=== PATIENT | male | born 1940 | race Caucasian/White ===

== ENCOUNTER 2018-11-26 13:50 | Emergency (ER) | payer MEDICARE, BC ==
[~2018-11-26] VITALS: Ht 165.1 cm; Wt 96.8 kg
[2018-11-26 14:25] VITALS: BP 145/95
== END 2018-11-26 14:26 | disposition home or self-care (01) ==
LOC: ER 13:52
DX: M54.2 Cervicalgia (principal); M79.10 Myalgia, unspecified site; R51 Headache; E78.00 Pure hypercholesterolemia, unspecified; I10 Essential (primary) hypertension; Z98.890 Other specified postprocedural states; Z88.5 Allergy status to narcotic agent
CPT/HCPCS: 99281

== ENCOUNTER 2019-02-08 09:34 | Day surgery (SDC) | payer MEDICARE, BC ==
[2019-02-06 15:57] LABS: BASOPHILS % (AUTO) 0.7 % (0-1); EOSINOPHILS # (AUTO) 0.1 X10'3 (0-0.9); LYMPHOCYTES # (AUTO) 1.5 X10'3 (1.1-4.8); LYMPHOCYTES % (AUTO) 20.8 % (21-51); MEAN CORPUSCULAR HEMOGLOBIN 32.2 PG (27.0-31.0); MEAN CORPUSCULAR HGB CONC 34.4 g/dL (33.0-36.5); MEAN CORPUSCULAR VOLUME 93.6 FL (78-98); MEAN PLATELET VOLUME 11.4 FL (7.4-10.4); MONOCYTES # (AUTO) 0.8 X10'3 (0-0.9); MONOCYTES % (AUTO) 11.9 % (2-12); NEUTROPHILS # (AUTO) 4.6 X10'3 (1.8-7.7); NEUTROPHILS % (AUTO) 64.6 % (42-75); PRE OP HEMATOCRIT 49.6 % (42.0-52.0); PRE OP HEMOGLOBIN 17.1 g/dL (14.0-17.9); PRE OP PLATELET COUNT 145 X10'3 (140-440); RED BLOOD COUNT 5.29 X10'6 (4.70-6.10); RED CELL DISTRIBUTION WIDTH 13.8 % (11.5-14.5)
[2019-02-06 16:12] LABS: ALBUMIN 3.8 G/DL (3.4-5.0); ALBUMIN/GLOBULIN RATIO 1.2 (1.1-1.5); ALKALINE PHOSPHATASE 106 IU/L (46-116); BLOOD UREA NITROGEN 21 MG/DL (7-18); BUN/CREATININE RATIO 16.3 (5.4-32.0); CALCIUM 9.2 MG/DL (8.5-10.1); CHLORIDE 104 MMOL/L (99-107); CREATININE 1.29 MG/DL (0.60-1.10); PRE OP ALT 30 U/L (30-65); PRE OP ANION GAP 7 (8-16); PRE OP AST 16 U/L (10-37); PRE OP BILIRUB, TOTAL 0.6 MG/DL (0.0-1.0); PRE OP GLUCOSE 109 MG/DL (70-104); PRE OP POTASSIUM 4.2 MMOL/L (3.4-5.1); PRE OP SODIUM 139 MMOL/L (135-145); TOTAL CARBON DIOXIDE 28.1 MMOL/L (24-32); eGFR 54 ML/MIN
[2019-02-06 16:20] LABS: LARGE PLATELETS FEW; PLATELET ESTIMATE NORMAL
[2019-02-06 16:36] LABS: CLARITY,URINE CLEAR (Clear); COLOR,URINE YELLOW (Yellow); GLUCOSE, URINE NEGATIVE (Neg); KETONES,URINE NEGATIVE (Neg); LEUKOCYTE ESTERASE ,URINE NEGATIVE (Neg); NITRITES, URINE NEGATIVE (Neg); OCCULT BLOOD,URINE NEGATIVE (Neg); PH,URINE 5.5 (4.8-8.0); PROTEIN,URINE NEGATIVE (Neg); UROBILINOGEN,URINE 0.2 E.U/dL (0.2-1.0)
[2019-02-06 16:43] LABS: UA COLLECTION TYPE NON-SPECIFIED
[~2019-02-08] VITALS: Ht 167.6 cm; Wt 94.6 kg
[2019-02-08] VITALS (12 sets, daily range): BP systolic 136–177; BP diastolic 74–99
[~2019-02-08 09:34] MED LIST: ALPR-624 PO; BISO1TAB8 PO; CALC-854 PO; CHOL100046 PO; CYAN-51 PO; DOCUMENT DATE & TIME OF BETA-BLOCKER PO ONE; GLUC1CAP8 PO; OMEG1CAP2 PO; OMEP20TA5 PO; SIMV-45 PO; TEST75GE TOP; VITA400C19 PO; [UNRECOGNIZED DRUG - CODE] PO; ceFOXitin 2 GM ADDvantage bag 100 ML IV ONE; ceFOXitin 2 GM ADDvantage bag 50 ML IV ONE; famotidine 10mg tablet PO ONE; famotidine 20mg tablet PO ONE; ringers solution, lacted 1,000 ML IV SCH
[2019-02-08] MEDS ORDERED: FLU VACC QS2019-20 36MOS UP/PF 60 MCG/0.5 ML SYRINGE IMVAC ONE (10:50)
[2019-02-08] MEDS ORDERED: ceFAZolin 1000mg inj ONE ×2 (12:21→13:20)
[2019-02-08] MEDS ORDERED: BUPIVAcaine/PF 2.5 mg/ml (0.25%) 30ml vial ONE (13:21)
[2019-02-08] MEDS ORDERED: sevoflurane 250ml liquid IH ONE (15:24)
[2019-02-08] MEDS ORDERED: fentaNYL /PF 50mcg/ml 5ml ampule ONE (15:28)
[2019-02-08] MEDS ORDERED: midazolam 2 mg/2 ml injection ONE (15:28)
[2019-02-08] MEDS ORDERED: propofol inj 20 ML IV ONE (15:29)
[2019-02-08] MEDS ORDERED: rocuronium 10mg/ml inj IV ONE (15:32)
[2019-02-08] MEDS ORDERED: sugammadex 200mg/2ml injection IV ONE (15:58)
[2019-02-08] MEDS ORDERED: ePHEDrine 50MG/ML INJ. ONE (15:58)
--- NOTE | 2019-02-08 16:18 | NUR ---
Received from OR via [facility], accompanied by Anesthesiologist DR SCHMIDT and report given by Anesthesiologist. PT DROWSY, DENIES PAIN, ABDOMEN W/4 LAP SITES W/BANDAIDS CDI. Addendum: 02/08/19 at 1649 by Keena Calderon RN Amended: Links added.
[2019-02-08] MEDS ORDERED: ringers solution, lacted 1,000 ML IV SCH (16:42)
[2019-02-08] MEDS ORDERED: ondansetron/PF 4mg/2ml inj IV PRN (16:45)
[2019-02-08] MEDS ORDERED: HYDROmorphone inj. 0.5 MG/0.5 ML DISP.SYRIN IV PRN ×2 (16:45)
[2019-02-08] MEDS ORDERED: hydrALAZINE 20mg/ml inj. IV PRN (16:45)
[2019-02-08] MEDS ORDERED: labetalol 20mg/4ml (5mg/ml) syringe IV PRN (16:45)
[2019-02-08] MEDS ORDERED: meperidine/PF 25mg/ml syringe IV PRN ×3 (16:45)
[2019-02-08] MEDS ORDERED: traMADol 50MG tablet PO ONE (17:30)
--- NOTE | 2019-02-08 18:08 | NUR ---
D/C INSTRUCTIONS GIVEN AND GONE OVER W/PT AND PTS WHOM VERBALIZE UNDERSTANDING, PT D/CD TO HOME VIA W/C TO PRIVATE VEHICLE W/O INCIDENT. Addendum: 02/08/19 at 1915 by Keena Calderon RN Amended: Links added.
== END 2019-02-08 18:08 | disposition home or self-care (01) ==
LOC: PAS 09:34
PROVIDERS: ATTEND Surgery
DX: K80.10 Calculus of gallbladder with chronic cholecystitis without obstruction (principal); I10 Essential (primary) hypertension; K21.9 Gastro-esophageal reflux disease without esophagitis; F41.9 Anxiety disorder, unspecified; Z79.899 Other long term (current) drug therapy; Z86.73 Personal history of transient ischemic attack (TIA), and cerebral infarction without residual deficits; Z88.5 Allergy status to narcotic agent; Z85.49 Personal history of malignant neoplasm of other male genital organs; Z98.890 Other specified postprocedural states; Z90.79 Acquired absence of other genital organ(s); Z23 Encounter for immunization
CPT/HCPCS: 36415; 47562; 80053; 81003; 82948; 85025; 93005; C9399; G0008; J0690; J0694; J2250; J2704; J3010; J3490; J7120; Q2037; 88304; A4215; A4618; A7000

== ENCOUNTER 2020-05-07 05:55 | Inpatient (IN) | payer MEDICARE, BC ==
[2020-04-30 16:26] LABS: BASOPHILS % (AUTO) 0.8 % (0-1); EOSINOPHILS # (AUTO) 0.2 X10'3 (0-0.9); EOSINOPHILS % (AUTO) 4.6 % (0-6); LYMPHOCYTES % (AUTO) 17.8 % (21-51); MEAN CORPUSCULAR HEMOGLOBIN 31.3 PG (27.0-31.0); MEAN CORPUSCULAR HGB CONC 33.8 g/dL (33.0-36.5); MEAN CORPUSCULAR VOLUME 92.7 FL (78-98); MEAN PLATELET VOLUME 10.5 FL (7.4-10.4); MONOCYTES # (AUTO) 0.7 X10'3 (0-0.9); MONOCYTES % (AUTO) 13.9 % (2-12); NEUTROPHILS # (AUTO) 3.4 X10'3 (1.8-7.7); NEUTROPHILS % (AUTO) 62.9 % (42-75); PRE OP HEMATOCRIT 42.5 % (42.0-52.0); PRE OP HEMOGLOBIN 14.3 g/dL (14.0-17.9); PRE OP PLATELET COUNT 157 X10'3 (140-440); RED BLOOD COUNT 4.58 X10'6 (4.70-6.10); RED CELL DISTRIBUTION WIDTH 14.3 % (11.5-14.5)
[2020-04-30 16:46] LABS: ALBUMIN 3.8 G/DL (3.4-5.0); ALBUMIN/GLOBULIN RATIO 1.1 (1.1-1.5); ALKALINE PHOSPHATASE 146 IU/L (46-116); BLOOD UREA NITROGEN 18 MG/DL (7-18); BUN/CREATININE RATIO 13.8 (5.4-32.0); CALCIUM 9.4 MG/DL (8.5-10.1); CHLORIDE 106 MMOL/L (99-107); PRE OP ALT 34 U/L (30-65); PRE OP ANION GAP 7 (8-16); PRE OP AST 20 U/L (10-37); PRE OP BILIRUB, TOTAL 0.5 MG/DL (0.0-1.0); PRE OP GLUCOSE 123 MG/DL (70-104); PRE OP POTASSIUM 4.5 MMOL/L (3.4-5.1); PRE OP SODIUM 143 MMOL/L (135-145); TOTAL CARBON DIOXIDE 30.2 MMOL/L (24-32); TOTAL PROTEIN 7.4 G/DL (6.4-8.2); eGFR 53 ML/MIN
[~2020-05-07] VITALS: Ht 167.6 cm; Wt 97.3 kg
[2020-05-07] VITALS (18 sets, daily range): BP systolic 119–152; BP diastolic 59–84
[~2020-05-07 05:55] MED LIST changes: -ALPR-624 PO; +LACT1CAP65 PO; -SIMV-45 PO; -TEST75GE TOP; +VITA-336 PO; -VITA400C19 PO; +acetaminophen 325mg tablet PO ONE; +ceFAZolin 2gm in dextrose, iso 50 ML IV ONE; -ceFOXitin 2 GM ADDvantage bag 100 ML IV ONE; -ceFOXitin 2 GM ADDvantage bag 50 ML IV ONE; +celeCOXIB 100mg capsule PO ONE; -famotidine 10mg tablet PO ONE; +gabapentin 300mg capsule PO ONE; +metoclopramide 5 mg/ml inj IV ONE; +oxyCODONE SR 10mg (sust. release) tab -2 tabs (20mg) PO ONE; +vancomycin 1,500 MG in NS 300ml IV soln IV ONE
[2020-05-07] MEDS ORDERED: TRANEXAMIC ACID 1 GM IN NACL,ISO-OS 100 ML IV ONE (06:00)
[2020-05-07] MEDS ORDERED: oxyCODONE IR 5mg (immed. release) tablet PO PRN (06:15)
[2020-05-07] MEDS ORDERED: HYDROmorphone 1 mg/ml syringe IV PRN (06:15)
[2020-05-07] MEDS ORDERED: loratadine/pseudoephedrine TAB.SR.12Hour PO PRN (06:15)
[2020-05-07] MEDS ORDERED: pantoprazole 40mg Tablet.DR PO PRN (06:15)
[2020-05-07] MEDS ORDERED: diphenhydrAMINE 25mg capsule PO PRN ×2 (06:15)
[2020-05-07] MEDS ORDERED: acetaminophen 325mg tablet PO PRN (06:15)
[2020-05-07] MEDS ORDERED: potassium cl 20mEq in 1/2 NS 1,000 ML IV SCH (06:15)
[2020-05-07] MEDS ORDERED: bisacodyl 10mg suppository rectal RC PRN (06:15)
[2020-05-07] MEDS ORDERED: magnesium hydroxide 30ml (MOM) UD suspension PO PRN (06:15)
[2020-05-07] MEDS ORDERED: HYDROmorphone inj. 0.5 MG/0.5 ML DISP.SYRIN IV PRN (06:15)
[2020-05-07] MEDS ORDERED: ondansetron/PF 4mg/2ml inj IV PRN ×3 (06:15→13:35)
[2020-05-07] MEDS ORDERED: LIDOcaine 1% (10mg/ml) 2ml vial ONE (06:27)
[2020-05-07] MEDS ORDERED: vancomycin 1,000mg inj ONE (06:40)
[2020-05-07] MEDS ORDERED: ROPIVAcaine inj 250 MG, CloNIDine/PF inj 80 MCG, epiNEPHrine inj 0.5 MG in normal salin... IV ONE (07:00)
[2020-05-07] MEDS ORDERED: acetaminophen 325mg tablet PO SCH (08:00)
[2020-05-07] MEDS ORDERED: multivitamins, therapeutics tablet PO SCH (08:00)
[2020-05-07] MEDS ORDERED: gabapentin 300mg capsule PO SCH (08:00)
[2020-05-07] MEDS ORDERED: ascorbic acid 500mg tablet PO SCH (08:00)
[2020-05-07] MEDS ORDERED: fentaNYL/PF 50MCG/1 ML 2ML syringe IV PRN ×2 (08:10)
[2020-05-07] MEDS ORDERED: ringers solution, lacted 1,000 ML IV SCH (08:10)
[2020-05-07] MEDS ORDERED: morphine 2 MG/ML inj. syringe IV PRN (08:10)
[2020-05-07] MEDS ORDERED: ROPIVAcaine 0.2% (10 MG/5 ML) BOLUS INJECTION ADDCANAL PRN (08:10)
[2020-05-07] MEDS ORDERED: morphine 4 MG/ML inj SYRINge IV PRN (08:10)
[2020-05-07] MEDS ORDERED: labetalol 20mg/4ml (5mg/ml) syringe IV PRN (08:10)
[2020-05-07] MEDS ORDERED: hydrALAZINE 20mg/ml inj. IV PRN (08:10)
[2020-05-07] MEDS ORDERED: fentaNYL/PF 50MCG/1 ML 2ML syringe ONE (08:13)
[2020-05-07] MEDS ORDERED: MIDAZolam 1mg/ml 10ml vial ONE (08:13)
[2020-05-07] MEDS ORDERED: aspirin 325mg tablet PO SCH (08:30)
[2020-05-07] MEDS ORDERED: sevoflurane 250ml liquid IH ONE (08:33)
[2020-05-07] MEDS ORDERED: ROPIVAcaine 0.5% (5mg/ml) 30ml vial ONE (09:00)
[2020-05-07] MEDS ORDERED: dexamethasone sod phosphate 4mg/ml inj. ONE (09:00)
--- NOTE | 2020-05-07 10:40 | NUR ---
Received from OR via BED, accompanied by Anesthesiologist DR CHRISTIANSON and report given by Anesthesiolgist. PATIENT A&OX4, DENIES PAIN, V/S WNL, NEUROVASCULAR CHECKS INTACT, SCD ON, 20G PIV LUE, DANELLE DRESSING LEFT KNEE WRAP POWDER PACK CDI W/ ONQ BALL AT 4ML/HR. SENSATIONS AT T11
[2020-05-07] MEDS: ROPIVAcaine 0.2%/PF PUMP/bolus 550 ML ADDCANAL SCH (10:46)
--- NOTE | 2020-05-07 11:40 | NUR ---
PATIENT A&OX4, DENIES PAIN, V/S WNL, NEUROVASCULAR CHECKS INTACT, SCD ON, 18G PIV LUE, DANELLE DRESSING LEFT KNEE WRAP POWDER PACK CDI W/ ONQ BALL AT 4ML/HR. SENSATIONS AT T11. PATIENT TAKEN TO 4012A WITH ALL BELONGINGS AND HOOKED UP TO MONITORS IN ROOM AND REPORT GIVEN TO PIPE STRAIGHTENER WHO HAS TAKEN OVER PATIENT CARE.
--- NOTE | 2020-05-07 11:59 | NUR ---
RECIEVED REPORT FROM ROSA M IN RECOVERY. PT ARRIVED TO FLOOR IN STABLE CONDITION AT 11:45. WILL CONTINUE TO MONITOR.
[2020-05-07] MEDS: acetaminophen 325mg tablet PO SCH ×2 (15:24→22:11)
[2020-05-07] MEDS ORDERED: ceFAZolin 2gm in dextrose, iso 100 ML IV SCH (16:00)
[2020-05-07] MEDS ORDERED: tranexamic acid 1gm/0.7% sal. 100 ML IV ONE (16:00)
--- NOTE | 2020-05-07 16:04 | NUR ---
Transexamic acid barcode would not scan, hung medication at 1524. Medications rights reviewed with patient and emar.
[2020-05-07] MEDS ORDERED: ceFAZolin 2gm in dextrose, iso 50 ML IV SCH (16:18)
[2020-05-07] MEDS: potassium cl 20mEq in 1/2 NS 1,000 ML IV SCH ×2 (16:37→21:35)
[2020-05-07] MEDS: ceFAZolin 2gm in dextrose, iso 50 ML IV SCH (16:42)
--- NOTE | 2020-05-07 18:18 | NUR ---
Orientee documentation: I have reviewed and agree with all interventions, assessments performed and documented by FATOUMATA Ryan.
--- NOTE | 2020-05-07 18:27 | NUR ---
Problems reprioritized. Patient report given, questions answered & plan of care reviewed with Ayala RN and student .
[2020-05-07] MEDS ORDERED: VANCOMYCIN 1,500MG inj. 1,500 MG in normal saline 500ml IV soln 500 ML IV SCH (20:00)
[2020-05-07] MEDS ORDERED: BISOPROLOL FUMARATE PO SCH (21:00)
[2020-05-07] MEDS ORDERED: HCTZ PO SCH (21:00)
[2020-05-07] MEDS: ascorbic acid 500mg tablet PO SCH (22:08)
[2020-05-07] MEDS: gabapentin 300mg capsule PO SCH (22:09)
[2020-05-07] MEDS: celeCOXIB 100mg capsule PO SCH (22:09)
[2020-05-07] MEDS: sennosides 8.6mg tablet PO SCH (22:11)
[2020-05-07] MEDS ORDERED: VANCOMYCIN 1,500MG inj. 1,500 MG in normal saline 500ml IV soln 300 ML IV ONE (22:50)
[2020-05-08] MEDS: ceFAZolin 2gm in dextrose, iso 50 ML IV SCH (00:56)
[2020-05-08 02:00] VITALS: BP 135/70
[2020-05-08] MEDS: acetaminophen 325mg tablet PO SCH ×4 (02:31→21:02)
[2020-05-08] MEDS: potassium cl 20mEq in 1/2 NS 1,000 ML IV SCH ×3 (05:35→21:35)
[2020-05-08 06:00] VITALS: BP 134/70
[2020-05-08] MEDS ORDERED: atenolol 50mg tablet PO SCH ×2 (08:00→08:57)
[2020-05-08] MEDS: HYDROchlorothiazide 25mg tablet PO SCH (08:17)
[2020-05-08] MEDS: celeCOXIB 100mg capsule PO SCH ×2 (08:19→21:03)
[2020-05-08] MEDS: multivitamins, therapeutics tablet PO SCH (08:19)
[2020-05-08] MEDS: aspirin 325mg tablet PO SCH (08:19)
[2020-05-08] MEDS: ascorbic acid 500mg tablet PO SCH ×2 (08:20→21:03)
[2020-05-08] MEDS: gabapentin 300mg capsule PO SCH ×3 (08:20→21:01)
[2020-05-08 08:35] LABS: BASOPHILS % (AUTO) 0.2 % (0-1); EOSINOPHILS % (AUTO) 0.4 % (0-6); HEMATOCRIT 36.5 % (42.0-52.0); HEMOGLOBIN 12.4 g/dl (14.0-17.9); LYMPHOCYTES # (AUTO) 0.7 X10'3 (1.1-4.8); LYMPHOCYTES % (AUTO) 7.2 % (21-51); MEAN CORPUSCULAR HEMOGLOBIN 31.4 PG (27.0-31.0); MEAN CORPUSCULAR HGB CONC 33.9 g/dL (33.0-36.5); MEAN CORPUSCULAR VOLUME 92.4 FL (78-98); MEAN PLATELET VOLUME 10.8 FL (7.4-10.4); MONOCYTES # (AUTO) 1.1 X10'3 (0-0.9); MONOCYTES % (AUTO) 10.4 % (2-12); NEUTROPHILS # (AUTO) 8.4 X10'3 (1.8-7.7); NEUTROPHILS % (AUTO) 81.8 % (42-75); PLATELET COUNT 137 X10'3 (140-440); RED BLOOD COUNT 3.95 X10'6 (4.70-6.10); WHITE BLOOD COUNT 10.3 X10'3 (4.5-11.0)
[2020-05-08 09:14] LABS: ANION GAP 5 (8-16); CHLORIDE 107 MMOL/L (99-107); POTASSIUM 4.6 MMOL/L (3.5-5.1); SODIUM 141 MMOL/L (135-145); TOTAL CARBON DIOXIDE 28.8 MMOL/L (24-32)
--- NOTE | 2020-05-08 09:16 | NUR ---
Joint Replacement Consult: Pt seen by VALERIY s/p L TKA for written/verbal high protein ed w/ RD contact information provided. Pt is agreeable to strawberry-banana and peach alternating Mark kenia BETANCOURT; notified. To provide initial assessment on above date. Addendum: 05/08/20 at [address] Amended: Links added.
[2020-05-08 09:34] LABS: LARGE PLATELETS FEW; PLATELET ESTIMATE NORMAL
[2020-05-08] MEDS ORDERED: atenolol 25mg tablet PO SCH (09:38)
[2020-05-08] MEDS ORDERED: ASPI-1 PO (09:50)
[2020-05-08] MEDS: oxyCODONE IR 5mg (immed. release) tablet PO PRN ×2 (13:22→19:37)
[2020-05-08] MEDS: JUVEN Smoothie Arginine/Glut./Ca2+Bmb (Juven 19.3pkt) 240ml cup PO SCH ×2 (13:25→18:00)
[2020-05-08 18:00] VITALS: BP 139/70
--- NOTE | 2020-05-08 18:25 | NUR ---
Patient in room [facility] 4012. I have received report from FATOUMATA Gauthier and had the opportunity to ask questions and assume patient care.
[2020-05-08] MEDS ORDERED: celeCOXIB 100mg capsule PO SCH (20:00)
[2020-05-08] MEDS: sennosides 8.6mg tablet PO SCH (21:03)
[2020-05-08 22:00] VITALS: BP 152/77
[2020-05-09] MEDS: acetaminophen 325mg tablet PO SCH ×2 (02:16→07:48)
[2020-05-09 05:00] VITALS: BP 176/96
[2020-05-09] MEDS: potassium cl 20mEq in 1/2 NS 1,000 ML IV SCH (05:35)
[2020-05-09] MEDS ORDERED: acetaminophen 325mg tablet PO PRN (06:15)
--- NOTE | 2020-05-09 06:15 | NUR ---
Problems reprioritized. Patient report given, questions answered & plan of care reviewed with FATOUMATA Doyle.
[2020-05-09] MEDS: gabapentin 300mg capsule PO SCH (07:48)
[2020-05-09] MEDS: multivitamins, therapeutics tablet PO SCH (07:48)
[2020-05-09] MEDS: ascorbic acid 500mg tablet PO SCH (07:48)
[2020-05-09] MEDS: celeCOXIB 100mg capsule PO SCH (07:48)
[2020-05-09] MEDS: aspirin 325mg tablet PO SCH (07:48)
[2020-05-09 07:49] VITALS: BP_SYST 96
[2020-05-09] MEDS: HYDROchlorothiazide 25mg tablet PO SCH (07:49)
[2020-05-09 09:35] LABS: BASOPHILS % (AUTO) 0.3 % (0-1); EOSINOPHILS # (AUTO) 0.3 X10'3 (0-0.9); EOSINOPHILS % (AUTO) 3.7 % (0-6); HEMATOCRIT 38.3 % (42.0-52.0); HEMOGLOBIN 12.7 g/dl (14.0-17.9); LYMPHOCYTES # (AUTO) 0.6 X10'3 (1.1-4.8); LYMPHOCYTES % (AUTO) 6.5 % (21-51); MEAN CORPUSCULAR HEMOGLOBIN 30.9 PG (27.0-31.0); MEAN CORPUSCULAR HGB CONC 33.2 g/dL (33.0-36.5); MEAN CORPUSCULAR VOLUME 93.1 FL (78-98); MEAN PLATELET VOLUME 10.6 FL (7.4-10.4); MONOCYTES # (AUTO) 0.9 X10'3 (0-0.9); MONOCYTES % (AUTO) 9.6 % (2-12); NEUTROPHILS # (AUTO) 7.5 X10'3 (1.8-7.7); NEUTROPHILS % (AUTO) 79.9 % (42-75); PLATELET COUNT 148 X10'3 (140-440); RED BLOOD COUNT 4.11 X10'6 (4.70-6.10); RED CELL DISTRIBUTION WIDTH 14.4 % (11.5-14.5); WHITE BLOOD COUNT 9.4 X10'3 (4.5-11.0)
[2020-05-09] MEDS: ROPIVAcaine 0.2%/PF PUMP/bolus 550 ML ADDCANAL SCH (10:16)
[2020-05-09] MEDS: oxyCODONE IR 5mg (immed. release) tablet PO PRN (10:16)
--- NOTE | 2020-05-09 11:34 | NUR ---
pt was dc with two island dresssings and a new On q pump with instructions on care and use of haylie dsg and on q pump.
== END 2020-05-09 11:20 | disposition home or self-care (01) | DRG 470 ==
LOC: PAS 05:55 → ORTHO 4S 11:30 → PAS 05-09 07:00
PROVIDERS: ADMIT Orthopaedic Surgery; ATTEND Orthopaedic Surgery
PROC: 0SRD069 Replacement of Left Knee Joint with Oxidized Zirconium on Polyethylene Synthetic Substitute, Cemented, Open Approach (ICD-10-PCS; principal; 2020-05-07 08:33)
DX: M17.12 Unilateral primary osteoarthritis, left knee (principal); D50.0 Iron deficiency anemia secondary to blood loss (chronic); K21.9 Gastro-esophageal reflux disease without esophagitis; I10 Essential (primary) hypertension; Z20.822 Contact with and (suspected) exposure to COVID-19; Z88.8 Allergy status to other drugs, medicaments and biological substances; Z79.899 Other long term (current) drug therapy
CPT/HCPCS: 36415; 73560; 80051; 80053; 82948; 85008; 85025; 86885; 86900; 86901; 87081; 87635; 97110; 97116; 97161; 97530; A4215; A7000; C1713; C1776; C9803; G0378; J1100; J1170; J2001; J2250; J2765; J2795; J3010; J3370; J3480; J7040; J7120